=== PATIENT | female | born 1990 ===

== ENCOUNTER 2016-12-10 10:49 | Inpatient (IN) ==
--- NOTE | 2016-12-10 10:59 | OB/GYN History & Physical ---
History of Present Illness History of present illness: Ms. Paredes is a 26 year old female 3 para 2 living 1 who presented to the labor department in active labor. The risk and benefits have been thoroughly discussed with this patient and significant other, plan of care has been discussed with Dr. Paulo Rodrigues and all parties are in agreement with plan. Her BRENNON is 12/17/2016 for an estimated gestational age of 39 weeks. The patient received her care through the [facility] and [facility], she received routine care and her course was uncomplicated. labs: She is O+, serologies nonreactive, rubella is immune, hepatitis B negative, HIV negative, GBS culture is negative. Review of systems is negative with exception of active labor. 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 General appearance: mild distress - Antepartum / Post Antepartum Exam Cervix -Dilatation: 5cm Effacement: 90% Station: -1 Rupture: Intact Presentation: vtx Heart Rate: 140s Abdomen obstetrics: Present: bowel sounds normal Vagina: Present: normal moisture Uterus exam: Present: enlarged Anus/Rectum: Present: normal perianal skin - Head Head exam: Present: normal inspection - Respiratory Respiratory exam: Present: clear to auscultation bilaterally - Cardiovascular Cardiovascular exam: Present: regular rate and rhythm - GI/Abdominal GI/Abdominal exam: Present: normal bowel sounds, soft - Extremities Exam Extremities exam: Present: normal inspection - Neurological Exam Neurological exam: Present: alert, oriented X3 - Psychiatric Psychiatric exam: Present: normal affect, normal mood - Skin Skin exam: Present: normal color, warm Assessment and Plan (1) Active labor at term Status: Acute Assessment and plan: Admit IV fluids IV Pitocin per protocol Artificial rupture membranes Epidural anesthesia if desired Pain management Anticipate Current Visit: Yes
[2016-12-10] MEDS ORDERED: BUTORPHANOL 2 MG/ML VIAL IV PRN (11:00)
[2016-12-10] MEDS ORDERED: ONDANSETRON 4 MG/2 ML VIAL IV PRN (11:00)
[2016-12-10] MEDS ORDERED: OXYTOCIN/LR 20 UNIT/1,000 ML BAG IV SCH (11:00)
[2016-12-10] MEDS ORDERED: LACTATED RINGERS 1,000 ML IV SCH (11:00)
[2016-12-10] MEDS ORDERED: MEPERIDINE 50 MG/1 ML VIAL IV PRN (11:00)
[2016-12-10] MEDS ORDERED: CLINDAMYCIN INJ 900 MG in PREMIX 1 EACH IV SCH (11:30)
[2016-12-10 11:32] LABS: Basophils % 0.2 % (0.0-0.8); Eosinophils # 0.1 10*3/uL (0.0-0.87); Eosinophils % 0.6 % (0.00-10.9); Hematocrit 38.6 VOL% (35.7-47.0); Hemoglobin 12.2 GM/DL (12.0-16.0); Immature Granulocytes % 0.4 %; Immature Granulocytes Absolute 0.04 #; Lymphocytes % 21.6 % (21.3-54.2); Mean Corpuscular HGB Conc 31.6 GM/DL (32-36); Mean Corpuscular Hemoglobin 26 PG (27-34); Mean Corpuscular Volume 83.5 FL (87-102); Mean Platelet Volume 11.2 FL (9.6-12.0); Monocytes # 0.5 10*3/uL (0.11-0.8); Monocytes % 5.7 % (1.7-12.7); Neutrophils # 6.7 10*3/uL (1.4-7.4); Neutrophils % 71.5 % (38.7-73.9); Platelet Count 202 T/CUMM (130-400); Red Blood Count 4.62 MC/CUMM (3.8-5.5); White Blood Count 9.3 T/CUMM (4-12)
[2016-12-10 12:03] LABS: Alanine Aminotransferase 9 U/L (13-56); Albumin 2.5 G/DL (3.4-5.0); Alkaline Phosphatase 122 U/L (45-117); Aspartate Amino Transferase 15 U/L (0-37); Bilirubin,Total < 0.39 MG/DL (0.2-1.0); Blood Urea Nitrogen 6 MG/DL (7-18); Calcium 8.4 MG/DL (8.5-10.1); Glucose 70 MG/DL (74-106); Osmolality,Calculated 278.1 MOS/KG (273-304); Potassium 4.1 MMOL/L (3.5-5.1); Sodium 142 MMOL/L (136-145); Uric Acid 3.5 MG/DL (2.6-6.0)
[2016-12-10] MEDS ORDERED: LIDOCAINE 1% 50 ML VIAL ONE (13:22)
[2016-12-10] MEDS ORDERED: miSOPROStol 200 MCG TABLET ONE (13:22)
[2016-12-10 13:47] LABS: Cord Arterial Blood HCO3 24.4 MMOL/L
[2016-12-10] MEDS ORDERED: RHO(D) IMMUNE GLOBULIN 300 MCG SYRINGE IM ONE (13:49)
[2016-12-10] MEDS ORDERED: HYDROCORTISONE 2.5% RECTAL CREAM 30 GM TUBE TOP PRN (13:49)
[2016-12-10] MEDS ORDERED: OXYTOCIN/LR 20 UNIT/1,000 ML BAG IV ONE (13:49)
[2016-12-10] MEDS ORDERED: DIPH/TET/ACEL PERT BOOSTER VACCINE 0.5 ML VIAL IM ONE (13:49)
[2016-12-10] MEDS ORDERED: LANOLIN 50% CREAM 0.3 OZ TUBE TOP PRN (13:49)
[2016-12-10] MEDS ORDERED: IBUPROFEN 800 MG TABLET PO PRN (13:49)
[2016-12-10] MEDS ORDERED: BENZOCAINE 20%/MENTHOL 0.5% SPRAY 56 GM CAN TOP PRN (13:49)
[2016-12-10] MEDS ORDERED: oxyCODONE/ACETAMINOPHEN 5-325 MG TABLET PO PRN ×2 (13:49)
[2016-12-10] MEDS ORDERED: BISACODYL 10 MG SUPP RECTAL PRN (13:49)
[2016-12-10] MEDS ORDERED: WITCH HAZEL PADS 100/JAR TOP PRN (13:49)
[2016-12-10] MEDS ORDERED: ACETAMINOPHEN 325 MG TABLET PO PRN (13:49)
[2016-12-10] MEDS ORDERED: MEASLES/MUMPS/RUBELLA VACCINE 0.5 ML VIAL SUBCUT ONE (13:49)
[2016-12-10 13:50] LABS: Cord Venous Blood HCO3 20.9 MMOL/L; Cord Venous Blood PCO2 47.4 MMHG; Cord Venous Blood PO2 27.5 MMHG
[2016-12-10] MEDS ORDERED: ACETAMINOPHEN/CODEINE 300-30 MG TABLET PO PRN (13:52)
[2016-12-10] MEDS: DOCUSATE SODIUM 100 MG CAPSULE PO SCH (20:43)
[2016-12-11 07:01] LABS: Basophils % 0.2 % (0.0-0.8); Eosinophils # 0.1 10*3/uL (0.0-0.87); Eosinophils % 0.7 % (0.00-10.9); Hematocrit 34.3 VOL% (35.7-47.0); Hemoglobin 10.7 GM/DL (12.0-16.0); Immature Granulocytes % 0.5 %; Immature Granulocytes Absolute 0.06 #; Lymphocytes # 2.2 10*3/uL (1.4-4.0); Lymphocytes % 18.2 % (21.3-54.2); Mean Corpuscular HGB Conc 31.2 GM/DL (32-36); Mean Corpuscular Hemoglobin 26 PG (27-34); Mean Corpuscular Volume 83.5 FL (87-102); Mean Platelet Volume 11.2 FL (9.6-12.0); Monocytes # 0.6 10*3/uL (0.11-0.8); Monocytes % 5.2 % (1.7-12.7); Neutrophils # 9.1 10*3/uL (1.4-7.4); Neutrophils % 75.2 % (38.7-73.9); Platelet Count 188 T/CUMM (130-400); Red Blood Count 4.11 MC/CUMM (3.8-5.5); Red Cell Distribution Width 15.3 % (9.3-17.3); White Blood Count 12.1 T/CUMM (4-12)
[2016-12-11] MEDS: DOCUSATE SODIUM 100 MG CAPSULE PO SCH ×2 (09:18→21:16)
--- NOTE | 2016-12-11 10:17 | OB/GYN Progress Note ---
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 Bonding well with . 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 - Constitutional Vitals: Vital Signs Temp Pulse Resp BP Pulse Ox 12/11/16 07:29 97.8 F 71 20 101/70 96 12/11/16 04:00 97.4 F L 61 18 108/69 99 12/11/16 00:00 97.6 F 68 18 111/69 99 12/10/16 20:00 97.6 F 74 18 114/68 96 12/10/16 18:03 74 19 112/62 96 12/10/16 17:00 75 19 115/70 96 12/10/16 16:04 74 18 114/63 96 12/10/16 15:33 79 19 110/69 96 12/10/16 15:05 97.2 F L 79 19 114/68 96 12/10/16 12:00 73 20 119/75 General appearance: no acute distress - Antepartum / Post Antepartum Exam Breast: bilateral: normal Abdomen obstetrics: Present: bowel sounds normal Vagina: Present: normal moisture, discharge (Light lochia rubra) Uterus exam: Present: enlarged (Fundus firm and midline) - Head Head exam: Present: normal inspection - Respiratory Respiratory exam: Present: clear to auscultation bilaterally - Cardiovascular Cardiovascular exam: Present: regular rate and rhythm - GI/Abdominal GI/Abdominal exam: Present: normal bowel sounds, soft - Extremities Exam Extremities exam: Present: normal inspection - Back Exam Back exam: Present: normal inspection - Neurological Exam Neurological exam: Present: alert, oriented X3 - Psychiatric Psychiatric exam: Present: normal affect, normal mood - Skin Skin exam: Present: normal color, warm Results - Labs CBC & BMP: 12/11/16 06:40 12/10/16 11:22
[2016-12-11] MEDS: FERROUS SULFATE 325 MG TABLET PO SCH ×2 (11:21→21:16)
[2016-12-12 07:34] VITALS: BP 115/76
[2016-12-12] MEDS: DOCUSATE SODIUM 100 MG CAPSULE PO SCH (09:35)
--- NOTE | 2016-12-12 09:39 | Progress Note ---
Family Medicine PN Sub Interval history: Status post vaginal Lungs are clear cardiac exam benign Abdomen soft nontender uterus is firm Extremities well with no limits neurologic grossly intact Assessment plans Status post vaginal to discharge in a.m. Exam (Progress Note) - Constitutional Vitals: Period Temp Pulse Resp BP Sys/Tapia Pulse Ox Last 24 Hr 97.2 F-98 F 57-77 18-20 95-116/54-76 96-99 Results - Labs CBC & BMP: 12/11/16 06:40 12/10/16 11:22 Quality Measures - VTE Contraindication to Pharmacological VTE Prophylaxis: Clinical assessment deems Pt at low risk, no prophalaxis needed Specialty Discharge - Follow Up or Referrals Follow up with: Elaine Rodrigues MD [Physician] - 01/23/17 9:30 am
[2016-12-12] MEDS: FERROUS SULFATE 325 MG TABLET PO SCH (09:45)
--- NOTE | 2016-12-12 09:51 | Discharge Summary ---
Hospital Course - Hospital Course Hospital Course: Ms. Paredes presented to the labor department for elective induction of labor due to term . She subsequently delivered a viable with no complications. She has followed a normal course and she has done well. She is bonding well with her infant. Her vital signs and lab values are stable. Her bleeding is minimal with no odor. She reports minimal pain. Her fundus is firm and midline and her perineum is intact. She will be discharged to home with prescriptions for pain and a follow-up appointment in our office. Diagnosis - Discharge Diagnosis (1) Active labor at term Status: Acute (2) Vaginal delivery Status: Acute Specialty Discharge - Follow Up or Referrals Follow up with: Elaine Rodrigues MD [Physician] - 01/23/17 9:30 am Discharge Plan - Discharge Data Disposition: Disch To Home/Self Care Condition at Discharge: Stable Discharge Diet: advance to your usual diet, regular diet Activity: resume usual activities as tolerated Hygiene: may shower Contact your physician if you experience:: fever over 101, pain uncontrolled by pain medications - Discharge Medications New Ferrous Sulfate Tab [Feosol Original Tab] 325 mg PO BID #60 tablet Ibuprofen Tab [Motrin Tab] 800 mg PO Q6H PRN #30 tablet PRN Reason: Pain Moderate (4-7) Acetamin/Codeine 300-30 Tab [Tylenol/Codeine #3] 2 tablet PO Q4H PRN #30 tablet PRN Reason: Pain Mild (1-3) - Follow Up or Referral Follow Up: Elaine Rodrigues MD [Physician] - 01/23/17 9:30 am - Forms/Instructions Exam - Constitutional Vitals: Period Temp Pulse Resp BP Sys/Tapia Pulse Ox Last 24 Hr 97.2 F-98 F 57-77 18-20 95-116/54-76 96-99 General appearance: normal weight, no acute distress - Respiratory Respiratory exam: Present: clear to auscultation bilaterally - Cardiovascular Cardiovascular exam: Present: regular rate and rhythm - GI/Abdominal GI/Abdominal exam: Present: normal bowel sounds, soft - Extremities Exam Extremities exam: Present: normal inspection - Neurological Exam Neurological exam: Present: alert, oriented X3 - Psychiatric Psychiatric exam: Present: normal affect, normal mood - Skin Skin exam: Present: normal color, warm DS: Provider Date of admission: 12/10/16 11:00 Primary care physician: Virginie Escobedo MD Attending physician on admission: Elaine Rodrigues MD Consults: 12/10/16 13:49 Consult to Surgical Rn [CONS] Routine Consult Surgical Rn: Breast Feeding Discharging clinician: Carine Hammond CNM Expected date of discharge: 12/12/16
--- NOTE | 2017-02-18 07:30 | Operative Note ---
DATE: 12/10/2016 This patient was admitted on 12/10/16. She subsequently in the first stage of labor received IV Pitocin. No anesthesia was given. This patient had very uncomplicated labor process. She had artificial rupture of membranes, clear fluid. She delivered on 12/10/16 vaginally. No episiotomy. An 8-pound 5- ounce female with Apgars of 9 at one minute and 9 at five minutes. Cord blood was obtained and cord gas. Three cord vessels were noted. Placenta was delivered manually without any complications. Estimated blood loss was 300 mL. Mother and stable and both were taken to their respective recovery room areas in stable condition. [place]
== END 2016-12-12 12:45 | disposition home or self-care (01) | DRG 775 ==
LOC: N.LDOUT 10:49 → N.LD 10:51 → N.OB 15:01
PROVIDERS: ADMIT Obstetrics & Gynecology; ATTEND Obstetrics & Gynecology

== ENCOUNTER 2018-10-23 06:03 | Inpatient (IN) ==
[2018-10-23] MEDS ORDERED: ONDANSETRON 4 MG/2 ML VIAL IV PRN (06:18)
[2018-10-23] MEDS ORDERED: LACTATED RINGERS 1,000 ML IV SCH (06:30)
[2018-10-23] MEDS ORDERED: MEPERIDINE 50 MG/1 ML VIAL IV PRN (06:39)
[2018-10-23 06:49] LABS: Basophils % 0.4 % (0.0-0.8); Eosinophils # 0.1 10*3/uL (0.0-0.87); Eosinophils % 0.6 % (0.00-10.9); Hematocrit 36.7 VOL% (35.7-47.0); Hemoglobin 11.3 GM/DL (12.0-16.0); Immature Granulocytes % 0.5 %; Immature Granulocytes Absolute 0.04 #; Lymphocytes # 1.8 10*3/uL (1.4-4.0); Lymphocytes % 21.6 % (21.3-54.2); Mean Corpuscular HGB Conc 30.8 GM/DL (32-36); Mean Corpuscular Hemoglobin 25 PG (27-34); Mean Platelet Volume 11.6 FL (9.6-12.0); Monocytes # 0.7 10*3/uL (0.11-0.8); Monocytes % 8.4 % (1.7-12.7); Neutrophils # 5.6 10*3/uL (1.4-7.4); Neutrophils % 68.5 % (38.7-73.9); Platelet Count 233 T/CUMM (130-400); Red Blood Count 4.53 MC/CUMM (3.8-5.5); Red Cell Distribution Width 15.5 % (9.3-17.3); White Blood Count 8.2 T/CUMM (4-12)
[2018-10-23] MEDS: OXYTOCIN/LR 20 UNIT/1,000 ML BAG IV SCH ×2 (07:29→14:08)
[2018-10-23] MEDS ORDERED: LIDOCAINE 1% 50 ML VIAL ONE (09:10)
[2018-10-23] MEDS ORDERED: CARBOPROST TROMETHAMINE 250 MCG/ML AMP IM ONE (09:11)
[2018-10-23] MEDS ORDERED: METHYLERGONOVINE 0.2 MG/1 ML AMP ONE (09:11)
[2018-10-23] MEDS ORDERED: miSOPROStol 200 MCG TABLET ONE (09:11)
[2018-10-23] MEDS ORDERED: SODIUM CHLORIDE 0.9% 100 ML IV ONE (09:20)
[2018-10-23] MEDS ORDERED: AMPICILLIN 2,000 MG VIAL ONE (09:20)
[2018-10-23] MEDS ORDERED: CLINDAMYCIN INJ 900 MG in PREMIX 1 EACH IV SCH (09:30)
[2018-10-23 10:48] LABS: Cord Venous Blood HCO3 19.8 MMOL/L; Cord Venous Blood PCO2 48.6 MMHG; Cord Venous Blood PO2 28.7
[2018-10-23] MEDS ORDERED: BISACODYL 10 MG SUPP RECTAL PRN (15:51)
[2018-10-23] MEDS ORDERED: ACETAMINOPHEN/CODEINE 300-30 MG TABLET PO PRN (15:51)
[2018-10-23] MEDS ORDERED: WITCH HAZEL PADS 100/JAR TOP PRN (15:51)
[2018-10-23] MEDS ORDERED: oxyCODONE/ACETAMINOPHEN 5-325 MG TABLET PO PRN ×2 (15:51)
[2018-10-23] MEDS ORDERED: ACETAMINOPHEN 325 MG TABLET PO PRN (15:51)
[2018-10-23] MEDS ORDERED: HYDROCORTISONE 2.5% RECTAL CREAM 30 GM TUBE TOP PRN (15:51)
[2018-10-23] MEDS ORDERED: LANOLIN 50% CREAM 0.3 OZ TUBE TOP PRN (15:51)
[2018-10-23] MEDS ORDERED: BENZOCAINE 20%/MENTHOL 0.5% SPRAY 56 GM CAN TOP PRN (15:51)
[2018-10-23] MEDS ORDERED: RHO(D) IMMUNE GLOBULIN 300 MCG SYRINGE IM ONE (15:51)
[2018-10-23] MEDS ORDERED: DIPH/TET/ACEL PERT BOOSTER VACCINE 0.5 ML VIAL IM ONE (15:51)
[2018-10-23] MEDS ORDERED: MEASLES/MUMPS/RUBELLA VACCINE 0.5 ML VIAL SUBCUT ONE (15:51)
[2018-10-23] MEDS: IBUPROFEN 800 MG TABLET PO PRN (19:55)
[2018-10-23] MEDS: DOCUSATE SODIUM 100 MG CAPSULE PO SCH (21:25)
[2018-10-24 05:32] LABS: Basophils % 0.3 % (0.0-0.8); Eosinophils # 0.1 10*3/uL (0.0-0.87); Eosinophils % 0.8 % (0.00-10.9); Hematocrit 33.3 VOL% (35.7-47.0); Hemoglobin 10.1 GM/DL (12.0-16.0); Immature Granulocytes % 0.5 %; Immature Granulocytes Absolute 0.05 #; Lymphocytes # 2.5 10*3/uL (1.4-4.0); Lymphocytes % 22.8 % (21.3-54.2); Mean Corpuscular HGB Conc 30.3 GM/DL (32-36); Mean Corpuscular Hemoglobin 25 PG (27-34); Mean Platelet Volume 11.4 FL (9.6-12.0); Monocytes # 0.6 10*3/uL (0.11-0.8); Monocytes % 5.2 % (1.7-12.7); Neutrophils # 7.6 10*3/uL (1.4-7.4); Neutrophils % 70.4 % (38.7-73.9); Platelet Count 205 T/CUMM (130-400); Red Blood Count 4.11 MC/CUMM (3.8-5.5); Red Cell Distribution Width 15.8 % (9.3-17.3); White Blood Count 10.7 T/CUMM (4-12)
[2018-10-24] MEDS: DOCUSATE SODIUM 100 MG CAPSULE PO SCH ×2 (09:07→20:55)
[2018-10-25 08:42] VITALS: BP 113/63
[2018-10-25] MEDS: IBUPROFEN 800 MG TABLET PO PRN (09:13)
[2018-10-25] MEDS: DOCUSATE SODIUM 100 MG CAPSULE PO SCH (09:13)
== END 2018-10-24 13:20 | disposition home or self-care (01) | DRG 560 ==
LOC: N.LDOUT 06:03 → N.LD 06:06 → N.OB 14:47
PROVIDERS: ADMIT Obstetrics & Gynecology; ATTEND Obstetrics & Gynecology